=== PATIENT | male | born 1950 | race Caucasian/White ===

== ENCOUNTER 2021-04-13 19:02 | Emergency (ER) | payer MEDICARE, BC ==
[~2021-04-13] VITALS: Ht 175.3 cm; Wt 80.0 kg
[~2021-04-13 19:02] MED LIST: ASPI-1265 PO; LOSA1TAB39 PO
[2021-04-13 20:10] LABS: BASOPHILS % (AUTO) 0.2 % (0-1); EOSINOPHILS % (AUTO) 0 % (0-6); HEMATOCRIT 37.3 % (42.0-52.0); HEMOGLOBIN 13.2 g/dl (14.0-17.9); LYMPHOCYTES # (AUTO) 0.4 X10'3 (1.1-4.8); LYMPHOCYTES % (AUTO) 4.8 % (21-51); MEAN CORPUSCULAR HEMOGLOBIN 31.5 PG (27.0-31.0); MEAN CORPUSCULAR HGB CONC 35.4 g/dL (33.0-36.5); MEAN CORPUSCULAR VOLUME 88.9 FL (78-98); MEAN PLATELET VOLUME 8.4 FL (7.4-10.4); MONOCYTES # (AUTO) 0.4 X10'3 (0-0.9); MONOCYTES % (AUTO) 4.8 % (2-12); NEUTROPHILS # (AUTO) 6.8 X10'3 (1.8-7.7); NEUTROPHILS % (AUTO) 90.2 % (42-75); PLATELET COUNT 220 X10'3 (140-440); RED CELL DISTRIBUTION WIDTH 12.9 % (11.5-14.5); WHITE BLOOD COUNT 7.5 X10'3 (4.5-11.0)
[2021-04-13 20:21] LABS: D-DIMER 0.73 MG/L FEU (0-0.50)
[2021-04-13] MEDS ORDERED: DEXAMETHASONE 6 MG TABLET PO ONE (20:22)
[2021-04-13 20:24] LABS: ALANINE AMINOTRANSFERASE 28 U/L (12-78); ALBUMIN 2.8 G/DL (3.4-5.0); ALBUMIN/GLOBULIN RATIO 0.7 (1.1-1.5); ALKALINE PHOSPHATASE 66 IU/L (46-116); ANION GAP 10 (8-16); ASPARTATE AMINO TRANSFERASE 38 U/L (10-37); BILIRUBIN,TOTAL 0.6 MG/DL (0.1-1.0); BLOOD UREA NITROGEN 24 MG/DL (7-18); BUN/CREATININE RATIO 12.3 (5.4-32.0); C-REACTIVE PROTEIN 19.63 MG/DL (0.0-0.5); CALCIUM 8.5 MG/DL (8.5-10.1); CHLORIDE 98 MMOL/L (99-107); CREATININE 1.95 MG/DL (0.60-1.10); GLUCOSE 146 MG/DL (70-104); POTASSIUM 3.5 MMOL/L (3.5-5.1); SODIUM 136 MMOL/L (135-145); TOTAL CARBON DIOXIDE 27.6 MMOL/L (24-32); TOTAL PROTEIN 6.8 G/DL (6.4-8.2); eGFR 34 ML/MIN
--- NOTE | 2021-04-13 21:29 | NUR ---
attempted to ambulate patient without oxygen to room. pt was 88-89% with ambulation, unstable on feet, SOB. patient placed on 2 lpm nc with improvement of sats.
[2021-04-13 21:52] LABS: ABG BASE EXCESS 1.8 mmol/L (-2.0-2.0); ABG HCO3 24.5 mmol/L (22.0-26.0); ABG OXYGEN SATURATION 98.4 % (94-97); ABG PCO2 (T) 33.5 mmHg (35.0-48.0); ABG PO2 (T) 123.1 mmHg (75.0-100.0); ALLEN'S TEST POSITIVE; FCOHb 0.3 % (0.0-3.9); FLOW 2 L/min; FMetHb 0.3 % (0.0-1.5); FO2Hb 97.8 % (94-97); PATIENT TEMPERATURE 37.6; TOTAL HEMOGLOBIN 14.3 G/dl (14.0-18.0)
[2021-04-13] MEDS ORDERED: DEXA6TAB6 PO (22:17)
[2021-04-13] MEDS ORDERED: CASIRIVIMAB (REGN10933) 1332MG 600 MG, IMDEVIMAB (REGN10987) 1332mg 600 MG in normal sa... IV ONE (22:30)
[2021-04-13] MEDS ORDERED: famotidine/PF 10 mg/ml inj IV PRN (22:35)
[2021-04-13] MEDS ORDERED: diphenhydrAMINE 50 mg/ml inj IV PRN (22:35)
[2021-04-13] MEDS ORDERED: hydrocortisone sod succ/PF 100mg/2ml inj. IV PRN (22:35)
[2021-04-13] MEDS ORDERED: albuterol 2.5 MG/3 ML nebule NEB PRN (22:35)
[2021-04-13] MEDS ORDERED: epiNEPHrine 1 mg/ml inj IM PRN (22:35)
[2021-04-13] MEDS ORDERED: acetaminophen 325mg tablet PO PRN (22:35)
--- NOTE | 2021-04-13 23:40 | NUR ---
regeneron administered without incident.
--- NOTE | 2021-04-14 00:31 | NUR ---
discussed patients ambulatory sat, unsteadiness on feet, and concern of discharge with Dr. Malagon. Awaiting further instructions
[2021-04-14] MEDS ORDERED: potassium Cl 20 mEq SR tablet PO PRN ×2 (01:25)
[2021-04-14] MEDS ORDERED: mag hydrox/Alum hydrox/simeth 30ml oral suspension PO PRN (01:25)
[2021-04-14] MEDS ORDERED: ondansetron/PF 4mg/2ml inj IV PRN (01:25)
[2021-04-14] MEDS ORDERED: magnesium 2GM in 50ml NS 50 ML IV PRN (01:25)
[2021-04-14] MEDS ORDERED: acetaminophen 325mg tablet PO PRN (01:25)
[2021-04-14] MEDS ORDERED: magnesium hydroxide 30ml (MOM) UD suspension PO PRN (01:25)
[2021-04-14] MEDS ORDERED: HYDROcodone/acetaminophen 5mg/325mg tablet PO PRN (01:25)
[2021-04-14] MEDS ORDERED: potassium Cl 40MEQ/1/2NS 520ml 520 ML IV PRN ×2 (01:25)
[2021-04-14] MEDS ORDERED: HYDROcodone/acetaminophen 10/325mg tab PO PRN (01:25)
[2021-04-14] MEDS ORDERED: magnesium Cl slow-release 64mg tablet PO PRN (01:25)
[2021-04-14] MEDS ORDERED: magnesium 4gm in 100ml NS 100 ML IV PRN (01:25)
[2021-04-14] MEDS: dexamethasone 4mg/ml inj IV SCH ×2 (02:02→09:38)
[2021-04-14] MEDS ORDERED: HYDROchlorothiazide 25mg tablet PO SCH (08:00)
[2021-04-14] MEDS ORDERED: losartan 50mg tablet PO SCH (08:00)
[2021-04-14] MEDS ORDERED: docusate sod 100mg capsule PO SCH (08:00)
[2021-04-14] MEDS ORDERED: enoxaparin 40mg/0.4ml syringe SUBCUT SCH (08:00)
[2021-04-14] MEDS ORDERED: K and/or MAG REPLACEMENT MC SCH (08:00)
[2021-04-14] MEDS ORDERED: aspirin 81mg tab.chew PO SCH (08:00)
[2021-04-14] MEDS ORDERED: REMDESIVIR (EUA) 100mg inj. 100 MG in normal saline 100ml IV soln 80 ML IV SCH (08:00)
[2021-04-14] MEDS ORDERED: dexamethasone 4mg tablet PO SCH (08:00)
--- NOTE | 2021-04-14 09:13 | NUR ---
[facility] CALLED [phone]
[2021-04-14] MEDS ORDERED: DEC4T PO (11:46)
[2021-04-14 14:25] VITALS: BP 113/64
== END 2021-04-14 18:40 | disposition home or self-care (01) ==
LOC: ER 19:02 → ED HOLD 04-14 01:24 → UNDOADMIN 04-14 01:24 → UNDODISIN 04-14 15:00
PROC: XW033E5 Introduction of Remdesivir Anti-infective into Peripheral Vein, Percutaneous Approach, New Technology Group 5 (ICD-10-PCS; principal; 2021-04-14)
DX: U07.1 COVID-19 (principal); J12.82 Pneumonia due to coronavirus disease 2019; I10 Essential (primary) hypertension; R09.02 Hypoxemia; Z79.899 Other long term (current) drug therapy; Z79.82 Long term (current) use of aspirin
CPT/HCPCS: 36415; 36600; 71045; 80053; 82803; 84145; 85018; 85025; 85379; 86140; 96365; 96372; 96375; 99291; J1100; Q0243; G0378; J1650; J8540